=== PATIENT | female | born 1995 | race Caucasian/White ===

== ENCOUNTER 2020-09-24 10:40 | Emergency (ER) | payer MEDICAID ==
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
== END 2020-09-24 16:41 | disposition home or self-care (01) ==
LOC: JP.ED 10:40
DX: F32.9 Major depressive disorder, single episode, unspecified (principal); F41.9 Anxiety disorder, unspecified; Z79.899 Other long term (current) drug therapy
CPT/HCPCS: 99283